=== PATIENT | male | born 1940 | race Caucasian/White ===

== ENCOUNTER 2023-04-23 16:35 | Inpatient (IN) | payer MEDICARE, OTHER ==
[~2023-04-23] VITALS: Ht 172.7 cm; Wt 114.3 kg
[~2023-04-23 16:35] MED LIST: AMLO-708 PO; APIX2.5T PO; ATOR40TA72 PO; CARV25TA3 PO; DOCU100C40 PO; ERGO500041 PO; FURO40TA4 PO; ISOS30TA84 PO; LANTUS SQ; LOSA100T58 PO; MULT-1085 PO
[2023-04-23 17:11] LABS: BASOPHILS % (AUTO) 0.2 % (0-1); EOSINOPHILS # (AUTO) 0.1 X10'3 (0-0.9); HEMATOCRIT 22.4 % (42.0-52.0); HEMOGLOBIN 7.3 g/dl (14.0-17.9); LYMPHOCYTES % (AUTO) 16.5 % (21-51); MEAN CORPUSCULAR HEMOGLOBIN 29.7 PG (27.0-31.0); MEAN CORPUSCULAR HGB CONC 32.7 g/dL (33.0-36.5); MEAN PLATELET VOLUME 9.9 FL (7.4-10.4); MONOCYTES # (AUTO) 0.7 X10'3 (0-0.9); MONOCYTES % (AUTO) 12.6 % (2-12); NEUTROPHILS % (AUTO) 69.7 % (42-75); PLATELET COUNT 115 X10'3 (140-440); RED BLOOD COUNT 2.46 X10'6 (4.70-6.10); RED CELL DISTRIBUTION WIDTH 17.2 % (11.5-14.5); WHITE BLOOD COUNT 5.8 X10'3 (4.5-11.0)
[2023-04-23 17:25] LABS: ALANINE AMINOTRANSFERASE 21 U/L (12-78); ALBUMIN 2.4 G/DL (3.4-5.0); ALBUMIN/GLOBULIN RATIO 0.8 (1.1-1.5); ALKALINE PHOSPHATASE 312 IU/L (46-116); ANION GAP 13 (8-16); ASPARTATE AMINO TRANSFERASE 17 U/L (10-37); BILIRUBIN,TOTAL 0.9 MG/DL (0.1-1.0); CHLORIDE 100 MMOL/L (99-107); CREATININE 7.73 MG/DL (0.60-1.10); GLUCOSE 173 MG/DL (70-104); LIPASE 51 U/L (16-77); SODIUM 132 MMOL/L (135-145); TOTAL CARBON DIOXIDE 19.3 MMOL/L (24-32); TOTAL PROTEIN 5.6 G/DL (6.4-8.2); eCRCL 7 ML/MIN; eGFR 7 ML/MIN
[2023-04-23 17:41] LABS: BLOOD UREA NITROGEN 183 MG/DL (7-18); BUN/CREATININE RATIO 23.7 (10.0-20.0); POTASSIUM 6.5 MMOL/L (3.5-5.1)
[2023-04-23] MEDS ORDERED: sodium bicarbonate (8.4%) 1 mEq/ml syringe IV ONE (17:50)
[2023-04-23] MEDS ORDERED: CALCIUM GLUC 1gm/50ml NACL,iso 50 ML IV PRN (17:50)
[2023-04-23 18:53] LABS: PRO BRAIN NATRIURETIC PEPTIDE > 30000 PG/ML (0-450)
[2023-04-23 19:26] LABS: MAGNESIUM 2.2 MG/DL (1.5-2.4)
[2023-04-23 19:29] LABS: APTT 34 SECONDS (22-32); INR 1.3 INR; PROTHROMBIN TIME 14.2 SECONDS (9.0-12.0)
[2023-04-23] MEDS ORDERED: insulin regular, human U-100 3ml vial - multi-dose IV ONE (19:30)
[2023-04-23] MEDS ORDERED: albuterol 2.5 MG/3 ML nebule NEB ONE (19:30)
[2023-04-23] MEDS ORDERED: Dextrose 10%-water IV solution 1,000 ML IV ONE (19:30)
[2023-04-23] MEDS ORDERED: PATIROMER CALCIUM SORBITEX 8.4 GM POWD.PACK PO ONE (19:35)
[2023-04-23] MEDS ORDERED: dextrose 50%-water 50ml dispensing syringe IV ONE (19:35)
[2023-04-23] MEDS: CALCIUM GLUC 1gm/50ml NACL,iso 50 ML IV SCH ×2 (19:57→20:37)
[2023-04-23 20:04] VITALS: PULSE 61; RESP 18; O2SAT 99
[2023-04-23 20:17] VITALS: PULSE 64; RESP 18; O2SAT 100
[2023-04-23] MEDS ORDERED: acetaminophen 325mg tablet PO PRN (20:20)
[2023-04-23] MEDS ORDERED: LidoCAINE 2% Topical Jelly 11mL syringe TOP ONE (20:20)
[2023-04-23 21:11] LABS: FREE T4 (FREE THYROXINE) 1.02 NG/DL (0.73-1.40); THYROID STIMULATING HORMONE 3.7 ulU/ml (0.34-4.50)
[2023-04-23 21:27] LABS: % IRON SATURATION 10 % (11-46); IRON 27 UG/DL (53-167); TOTAL IRON BINDING CAPACITY 265 UG/DL (259-388)
[2023-04-23 22:35] LABS: TOTAL PROTEIN,URINE RANDOM 128.9 MG/DL
[2023-04-23 22:48] LABS: UA COLLECTION TYPE FOLEY CATH
[2023-04-23 22:49] LABS: COLOR,URINE YELLOW (Yellow)
[2023-04-23 22:50] LABS: CLARITY,URINE TURBID (Clear); GLUCOSE, URINE NEGATIVE (Neg); KETONES,URINE TRACE mg/dl (Neg); NITRITES, URINE NEGATIVE (Neg); OCCULT BLOOD,URINE LARGE (Neg); PROTEIN,URINE 300 mg/dl (Neg)
[2023-04-23] MEDS: acetaminophen 325mg tablet PO PRN (22:50)
[2023-04-23 22:51] LABS: BILIRUBIN,URINE NEGATIVE (Neg); LEUKOCYTE ESTERASE ,URINE LARGE (Neg); UROBILINOGEN,URINE 0.2 E.U/dL (0.2-1.0)
[2023-04-23 22:56] LABS: WBC,URINE TNTC /HPF (0-4)
[2023-04-23 22:57] LABS: BACTERIA,URINE 2+ /HPF (Neg); MUCUS STRANDS FEW /LPF (Neg); SQUAMOUS EPITHELIAL CELL,UR FEW /LPF (FEW)
[2023-04-23 22:58] LABS: WBC CLUMPS,URINE MODERATE /HPF (NEGATIVE)
[2023-04-23] MEDS ORDERED: normal saline 500ml IV soln 500 ML IV ONE (23:15)
[2023-04-23] MEDS ORDERED: vancomycin/NS 1 GM ADD-VANTAGE 250 ML IV ONE (23:15)
[2023-04-23] MEDS ORDERED: glucagon, human recombinant 1mg kit SUBCUT PRN (23:30)
[2023-04-23] MEDS ORDERED: dextrose 50%-water 50ml dispensing syringe IV PRN ×2 (23:30)
[2023-04-23] MEDS ORDERED: MESSAGE TO PHARMACY PO ONE (23:30)
[2023-04-23] MEDS ORDERED: DEXTROSE 15 GM of carb/4 tabs (each vial/BOTTLE has 4 tablets) PO PRN ×2 (23:30)
[2023-04-23 23:52] LABS: UA EOSINOPHILS FEW EOS /HPF
[2023-04-23 23:59] LABS: HEMOGLOBIN A1C 6.8 % (4.5-6.2)
[2023-04-24] VITALS (29 sets, daily range): BP systolic 91–136; BP diastolic 41–72; PULSE 60–66; RESP 13–20; TEMP 96.9–97.2; O2SAT 93–97
[2023-04-24 04:50] LABS: BASOPHILS % (AUTO) 0.6 % (0-1); EOSINOPHILS # (AUTO) 0.1 X10'3 (0-0.9); EOSINOPHILS % (AUTO) 1.4 % (0-6); LYMPHOCYTES # (AUTO) 1.1 X10'3 (1.1-4.8); LYMPHOCYTES % (AUTO) 21.7 % (21-51); MEAN CORPUSCULAR HEMOGLOBIN 29.5 PG (27.0-31.0); MEAN CORPUSCULAR HGB CONC 32.7 g/dL (33.0-36.5); MEAN CORPUSCULAR VOLUME 90.2 FL (78-98); MEAN PLATELET VOLUME 10.1 FL (7.4-10.4); MONOCYTES # (AUTO) 0.5 X10'3 (0-0.9); MONOCYTES % (AUTO) 11.1 % (2-12); NEUTROPHILS # (AUTO) 3.2 X10'3 (1.8-7.7); NEUTROPHILS % (AUTO) 65.2 % (42-75); PLATELET COUNT 102 X10'3 (140-440); RED CELL DISTRIBUTION WIDTH 17.4 % (11.5-14.5); WHITE BLOOD COUNT 4.9 X10'3 (4.5-11.0)
[2023-04-24 04:53] LABS: HEMATOCRIT 21.6 % (42.0-52.0); HEMOGLOBIN 7.1 g/dl (14.0-17.9)
[2023-04-24 04:57] LABS: APTT 36 SECONDS (22-32); INR 1.4 INR; PROTHROMBIN TIME 14.5 SECONDS (9.0-12.0)
[2023-04-24 04:58] LABS: ALANINE AMINOTRANSFERASE 21 U/L (12-78); ALBUMIN 2.4 G/DL (3.4-5.0); ALBUMIN/GLOBULIN RATIO 0.8 (1.1-1.5); ALKALINE PHOSPHATASE 289 IU/L (46-116); ANION GAP 14 (8-16); ASPARTATE AMINO TRANSFERASE 17 U/L (10-37); CALCIUM 8.4 MG/DL (8.5-10.1); CHLORIDE 99 MMOL/L (99-107); CREATININE 7.69 MG/DL (0.60-1.10); GLUCOSE 81 MG/DL (70-104); PHOSPHORUS 8.9 MG/DL (2.3-4.5); POTASSIUM 5.7 MMOL/L (3.5-5.1); SODIUM 130 MMOL/L (135-145); TOTAL CARBON DIOXIDE 17.5 MMOL/L (24-32); TOTAL PROTEIN 5.4 G/DL (6.4-8.2); eCRCL 7 ML/MIN; eGFR 7 ML/MIN
[2023-04-24 05:00] LABS: BLOOD UREA NITROGEN 189 MG/DL (7-18); BUN/CREATININE RATIO 24.6 (10.0-20.0)
[2023-04-24] MEDS: PATIROMER CALCIUM SORBITEX 8.4 GM POWD.PACK PO SCH (07:17)
[2023-04-24] MEDS: heparin, porcine 5000 units/ml vial SQ SCH ×2 (07:20→19:42)
[2023-04-24] MEDS ORDERED: EPOETIN ALFA-EPBX 20,000 UNIT/ML 1 ML MDV IV ONE (08:00)
[2023-04-24] MEDS ORDERED: cefepime 1GM/NS ADD-VANTAGE 100 ML IV SCH (08:00)
[2023-04-24] MEDS ORDERED: normal saline 1000ml 250 ML IV PRN (08:00)
[2023-04-24] MEDS ORDERED: heparin 1,000unit/ml 10ml vial 10 ML IV ONE (08:00)
[2023-04-24] MEDS ORDERED: heparin 1,000 units/ml 10ml inj HE ONE ×2 (08:00)
[2023-04-24] MEDS ORDERED: mannitol 12.5gm/50mL VIAL IV PRN (08:00)
[2023-04-24] MEDS: sodium ferric gluc complex inj 125 MG in normal saline 100ml IV soln 100 ML IV SCH (09:35)
[2023-04-24] MEDS ORDERED: mannitol 12.5gm/50mL VIAL IV ONE (09:40)
[2023-04-24] MEDS ORDERED: vancomycin/NS 1 GM ADD-VANTAGE 250 ML IV PRN (09:50)
[2023-04-24 10:27] LABS: VANCOMYCIN,RANDOM 13.2 ug/mL (20.0-30.0)
[2023-04-24] MEDS ORDERED: Dextrose 10%-water 1000ml IV soln IV ONE (10:55)
[2023-04-24] MEDS ORDERED: fentaNYL/PF 50MCG/1 ML 2ML syringe ONE (11:56)
[2023-04-24] MEDS ORDERED: heparin 1,000unit/ml 10ml vial 10 ML ONE (11:56)
[2023-04-24] MEDS ORDERED: vancomycin/NS 1 GM ADD-VANTAGE 250 ML IV ONE (12:00)
[2023-04-24] MEDS ORDERED: ondansetron/PF 4mg/2ml inj ONE (12:17)
[2023-04-24] MEDS: acetaminophen 325mg tablet PO PRN (19:42)
[2023-04-24] MEDS: Melatonin 3mg tablet PO SCH (19:45)
[2023-04-25] VITALS (20 sets, daily range): BP systolic 109–152; BP diastolic 43–92; PULSE 60–67; RESP 12–22; TEMP 97.4–98.4; O2SAT 93–98
[2023-04-25] MEDS: VANCOMYCIN LEVEL IV SCH (03:00)
[2023-04-25 06:19] LABS: BASOPHILS % (AUTO) 0.4 % (0-1); EOSINOPHILS # (AUTO) 0.1 X10'3 (0-0.9); EOSINOPHILS % (AUTO) 1.4 % (0-6); HEMATOCRIT 24.3 % (42.0-52.0); HEMOGLOBIN 8.1 g/dl (14.0-17.9); LYMPHOCYTES # (AUTO) 1.2 X10'3 (1.1-4.8); LYMPHOCYTES % (AUTO) 19.9 % (21-51); MEAN CORPUSCULAR HEMOGLOBIN 29.9 PG (27.0-31.0); MEAN CORPUSCULAR HGB CONC 33.4 g/dL (33.0-36.5); MEAN CORPUSCULAR VOLUME 89.7 FL (78-98); MEAN PLATELET VOLUME 10.2 FL (7.4-10.4); MONOCYTES # (AUTO) 0.8 X10'3 (0-0.9); MONOCYTES % (AUTO) 13.9 % (2-12); NEUTROPHILS # (AUTO) 3.8 X10'3 (1.8-7.7); NEUTROPHILS % (AUTO) 64.4 % (42-75); PLATELET COUNT 106 X10'3 (140-440); RED BLOOD COUNT 2.71 X10'6 (4.70-6.10); RED CELL DISTRIBUTION WIDTH 18.2 % (11.5-14.5); WHITE BLOOD COUNT 5.9 X10'3 (4.5-11.0)
[2023-04-25 06:21] LABS: ALBUMIN 2.4 G/DL (3.4-5.0); ANION GAP 14 (8-16); BLOOD UREA NITROGEN 148 MG/DL (7-18); BUN/CREATININE RATIO 23.2 (10.0-20.0); CALCIUM 7.9 MG/DL (8.5-10.1); CHLORIDE 99 MMOL/L (99-107); CREATININE 6.39 MG/DL (0.60-1.10); GLUCOSE 75 MG/DL (70-104); MAGNESIUM 1.9 MG/DL (1.5-2.4); PHOSPHORUS 7.5 MG/DL (2.3-4.5); POTASSIUM 5.3 MMOL/L (3.5-5.1); SODIUM 133 MMOL/L (135-145); TOTAL CARBON DIOXIDE 20.3 MMOL/L (24-32); VANCOMYCIN,RANDOM 14.7 ug/mL (20.0-30.0); eCRCL 9 ML/MIN; eGFR 8 ML/MIN
[2023-04-25] MEDS ORDERED: EPOETIN ALFA-EPBX 20,000 UNIT/ML 1 ML MDV IV ONE (07:00)
[2023-04-25] MEDS ORDERED: mannitol 12.5gm/50mL VIAL IV ONE (07:00)
[2023-04-25] MEDS ORDERED: heparin 1,000unit/ml 10ml vial 10 ML IV ONE (07:00)
[2023-04-25] MEDS ORDERED: normal saline 1000ml 250 ML IV PRN (07:00)
[2023-04-25] MEDS ORDERED: heparin 1,000 units/ml 10ml inj HE ONE ×2 (07:05)
[2023-04-25] MEDS: cefepime inj. 0.25 GM in normal saline 100ml IV soln 102.5 ML IV SCH (07:34)
[2023-04-25] MEDS: PATIROMER CALCIUM SORBITEX 8.4 GM POWD.PACK PO SCH (07:37)
[2023-04-25] MEDS ORDERED: famotidine 20mg tablet PO SCH (08:00)
[2023-04-25] MEDS: sodium ferric gluc complex inj 125 MG in normal saline 100ml IV soln 100 ML IV SCH (08:34)
[2023-04-25] MEDS: heparin, porcine 5000 units/ml vial SQ SCH ×2 (08:37→20:30)
[2023-04-25] MEDS ORDERED: vancomycin/NS 1 GM ADD-VANTAGE 250 ML IV ONE (09:00)
[2023-04-25 11:16] LABS: HBSAG SCREEN Negative (Negative)
[2023-04-25] MEDS ORDERED: bisacodyl 10mg suppository rectal RC PRN (15:20)
[2023-04-25] MEDS ORDERED: bisacodyl 5mg tablet.DR PO PRN (15:20)
[2023-04-25] MEDS: ondansetron/PF 4mg/2ml inj IV PRN (17:51)
[2023-04-25] MEDS: Melatonin 3mg tablet PO SCH (20:29)
[2023-04-25] MEDS: acetaminophen 325mg tablet PO PRN (20:41)
[2023-04-26] VITALS (15 sets, daily range): BP systolic 100–141; BP diastolic 28–95; PULSE 58–80; RESP 14–22; TEMP 98–98.4; O2SAT 91–96
[2023-04-26 07:01] LABS: BASOPHILS % (AUTO) 0.4 % (0-1); EOSINOPHILS % (AUTO) 0.5 % (0-6); HEMATOCRIT 24.9 % (42.0-52.0); HEMOGLOBIN 8.2 g/dl (14.0-17.9); LYMPHOCYTES # (AUTO) 1.3 X10'3 (1.1-4.8); LYMPHOCYTES % (AUTO) 22.3 % (21-51); MEAN CORPUSCULAR HEMOGLOBIN 29.8 PG (27.0-31.0); MEAN CORPUSCULAR HGB CONC 32.9 g/dL (33.0-36.5); MEAN CORPUSCULAR VOLUME 90.6 FL (78-98); MEAN PLATELET VOLUME 9.8 FL (7.4-10.4); MONOCYTES # (AUTO) 0.9 X10'3 (0-0.9); MONOCYTES % (AUTO) 16.4 % (2-12); NEUTROPHILS # (AUTO) 3.4 X10'3 (1.8-7.7); NEUTROPHILS % (AUTO) 60.4 % (42-75); PLATELET COUNT 116 X10'3 (140-440); RED BLOOD COUNT 2.75 X10'6 (4.70-6.10); RED CELL DISTRIBUTION WIDTH 17.9 % (11.5-14.5); WHITE BLOOD COUNT 5.7 X10'3 (4.5-11.0)
[2023-04-26 07:06] LABS: ALBUMIN 2.4 G/DL (3.4-5.0); ANION GAP 16 (8-16); BLOOD UREA NITROGEN 101 MG/DL (7-18); BUN/CREATININE RATIO 18.2 (10.0-20.0); CALCIUM 8.7 MG/DL (8.5-10.1); CHLORIDE 100 MMOL/L (99-107); CREATININE 5.54 MG/DL (0.60-1.10); GLUCOSE 107 MG/DL (70-104); PHOSPHORUS 6.9 MG/DL (2.3-4.5); POTASSIUM 5.1 MMOL/L (3.5-5.1); SODIUM 135 MMOL/L (135-145); VANCOMYCIN,RANDOM 18.6 ug/mL (20.0-30.0); eCRCL 10 ML/MIN; eGFR 10 ML/MIN
[2023-04-26] MEDS: VANCOMYCIN LEVEL IV SCH (07:10)
[2023-04-26] MEDS ORDERED: heparin 1,000 units/ml 10ml inj HE ONE ×2 (07:15)
[2023-04-26] MEDS: heparin, porcine 5000 units/ml vial SQ SCH ×2 (07:52→20:20)
[2023-04-26] MEDS: nystatin 15 GM powder TP SCH ×2 (07:52→20:21)
[2023-04-26] MEDS ORDERED: albumin (human) 25% 100ml IV 100 ML IV PRN (08:00)
[2023-04-26] MEDS ORDERED: EPOETIN ALFA-EPBX 20,000 UNIT/ML 1 ML MDV IV ONE (08:00)
[2023-04-26] MEDS: sodium ferric gluc complex inj 125 MG in normal saline 100ml IV soln 100 ML IV SCH (08:46)
[2023-04-26] MEDS: ondansetron/PF 4mg/2ml inj IV PRN ×2 (11:11→20:45)
[2023-04-26] MEDS: cefepime inj. 0.25 GM in normal saline 100ml IV soln 102.5 ML IV SCH (11:27)
[2023-04-26] MEDS: PATIROMER CALCIUM SORBITEX 8.4 GM POWD.PACK PO SCH (11:28)
[2023-04-26] MEDS: acetaminophen 325mg tablet PO PRN ×2 (11:32→20:20)
[2023-04-26] MEDS: Melatonin 3mg tablet PO SCH (20:19)
[2023-04-27] VITALS (7 sets, daily range): BP systolic 102–131; BP diastolic 41–60; PULSE 58–72; RESP 16–21; TEMP 97.3–98.3; O2SAT 92–96
[2023-04-27] MEDS ORDERED: ondansetron/PF 4mg/2ml inj IV ONE (01:05)
[2023-04-27] MEDS: VANCOMYCIN LEVEL IV SCH (02:33)
[2023-04-27] MEDS: ondansetron/PF 4mg/2ml inj IV PRN (05:18)
[2023-04-27 06:28] LABS: BASOPHILS % (AUTO) 0.6 % (0-1); EOSINOPHILS % (AUTO) 0.5 % (0-6); HEMATOCRIT 25.9 % (42.0-52.0); HEMOGLOBIN 8.4 g/dl (14.0-17.9); LYMPHOCYTES # (AUTO) 1.4 X10'3 (1.1-4.8); LYMPHOCYTES % (AUTO) 20.7 % (21-51); MEAN CORPUSCULAR HEMOGLOBIN 29.7 PG (27.0-31.0); MEAN CORPUSCULAR HGB CONC 32.5 g/dL (33.0-36.5); MEAN CORPUSCULAR VOLUME 91.4 FL (78-98); MEAN PLATELET VOLUME 9.6 FL (7.4-10.4); MONOCYTES # (AUTO) 1.3 X10'3 (0-0.9); MONOCYTES % (AUTO) 19.3 % (2-12); NEUTROPHILS # (AUTO) 3.9 X10'3 (1.8-7.7); NEUTROPHILS % (AUTO) 58.9 % (42-75); PLATELET COUNT 136 X10'3 (140-440); RED BLOOD COUNT 2.83 X10'6 (4.70-6.10); RED CELL DISTRIBUTION WIDTH 18.1 % (11.5-14.5); WHITE BLOOD COUNT 6.7 X10'3 (4.5-11.0)
[2023-04-27 06:54] LABS: ALBUMIN 2.4 G/DL (3.4-5.0); ANION GAP 17 (8-16); BLOOD UREA NITROGEN 68 MG/DL (7-18); BUN/CREATININE RATIO 13.8 (10.0-20.0); CALCIUM 8.5 MG/DL (8.5-10.1); CHLORIDE 99 MMOL/L (99-107); CREATININE 4.93 MG/DL (0.60-1.10); GLUCOSE 146 MG/DL (70-104); MAGNESIUM 1.8 MG/DL (1.5-2.4); PHOSPHORUS 6.2 MG/DL (2.3-4.5); POTASSIUM 4.6 MMOL/L (3.5-5.1); SODIUM 135 MMOL/L (135-145); TOTAL CARBON DIOXIDE 19.5 MMOL/L (24-32); eCRCL 11 ML/MIN; eGFR 11 ML/MIN
[2023-04-27 07:07] LABS: ANISOCYTOSIS 2+; PLATELET ESTIMATE DECREASED; POIKILOCYTOSIS FEW; POLYCHROMASIA FEW
[2023-04-27] MEDS ORDERED: vancomycin/NS 1 GM ADD-VANTAGE 250 ML IV ONE (07:30)
[2023-04-27] MEDS: PATIROMER CALCIUM SORBITEX 8.4 GM POWD.PACK PO SCH (08:00)
[2023-04-27] MEDS ORDERED: famotidine 20mg tablet PO SCH ×2 (08:00→15:41)
[2023-04-27] MEDS: acetaminophen 325mg tablet PO PRN ×2 (10:31→20:19)
[2023-04-27] MEDS: cefepime inj. 0.25 GM in normal saline 100ml IV soln 102.5 ML IV SCH (10:31)
[2023-04-27] MEDS: heparin, porcine 5000 units/ml vial SQ SCH ×2 (10:32→20:18)
[2023-04-27] MEDS: nystatin 15 GM powder TP SCH ×2 (10:42→20:18)
[2023-04-27] MEDS: sodium ferric gluc complex inj 125 MG in normal saline 100ml IV soln 100 ML IV SCH (16:31)
[2023-04-27] MEDS: Melatonin 3mg tablet PO SCH (20:18)
[2023-04-28] VITALS (17 sets, daily range): BP systolic 116–148; BP diastolic 49–66; PULSE 60–96; RESP 15–24; TEMP 97.7–99.5; O2SAT 90–97
[2023-04-28] MEDS: VANCOMYCIN LEVEL IV SCH (03:00)
[2023-04-28] MEDS: ondansetron/PF 4mg/2ml inj IV PRN (05:31)
[2023-04-28 06:35] LABS: BASOPHILS % (AUTO) 0.6 % (0-1); EOSINOPHILS # (AUTO) 0.1 X10'3 (0-0.9); EOSINOPHILS % (AUTO) 1.4 % (0-6); HEMATOCRIT 25.9 % (42.0-52.0); HEMOGLOBIN 8.4 g/dl (14.0-17.9); LYMPHOCYTES # (AUTO) 1.1 X10'3 (1.1-4.8); LYMPHOCYTES % (AUTO) 17.2 % (21-51); MEAN CORPUSCULAR HEMOGLOBIN 29.6 PG (27.0-31.0); MEAN CORPUSCULAR HGB CONC 32.3 g/dL (33.0-36.5); MEAN CORPUSCULAR VOLUME 91.8 FL (78-98); MEAN PLATELET VOLUME 9.2 FL (7.4-10.4); MONOCYTES # (AUTO) 1.1 X10'3 (0-0.9); MONOCYTES % (AUTO) 17.8 % (2-12); PLATELET COUNT 141 X10'3 (140-440); RED BLOOD COUNT 2.82 X10'6 (4.70-6.10); RED CELL DISTRIBUTION WIDTH 18.2 % (11.5-14.5); WHITE BLOOD COUNT 6.3 X10'3 (4.5-11.0)
[2023-04-28 06:45] LABS: ALBUMIN 2.5 G/DL (3.4-5.0); ANION GAP 14 (8-16); BLOOD UREA NITROGEN 73 MG/DL (7-18); BUN/CREATININE RATIO 12.4 (10.0-20.0); CALCIUM 8.8 MG/DL (8.5-10.1); CHLORIDE 99 MMOL/L (99-107); CREATININE 5.88 MG/DL (0.60-1.10); GLUCOSE 186 MG/DL (70-104); MAGNESIUM 1.9 MG/DL (1.5-2.4); PHOSPHORUS 6.4 MG/DL (2.3-4.5); POTASSIUM 4.4 MMOL/L (3.5-5.1); SODIUM 134 MMOL/L (135-145); TOTAL CARBON DIOXIDE 20.8 MMOL/L (24-32); eCRCL 10 ML/MIN; eGFR 9 ML/MIN
[2023-04-28] MEDS ORDERED: EPOETIN ALFA-EPBX 20,000 UNIT/ML 1 ML MDV IV ONE (07:20)
[2023-04-28] MEDS ORDERED: heparin 1,000unit/ml 10ml vial 10 ML IV ONE (07:20)
[2023-04-28] MEDS ORDERED: normal saline 1000ml 250 ML IV PRN (07:20)
[2023-04-28] MEDS ORDERED: heparin 1,000 units/ml 10ml inj HE ONE ×2 (07:25)
[2023-04-28] MEDS: heparin, porcine 5000 units/ml vial SQ SCH ×2 (07:53→20:38)
[2023-04-28 07:55] LABS: ANISOCYTOSIS 2+; PLATELET ESTIMATE NORMAL; TOTAL CELLS COUNTED 100
[2023-04-28] MEDS: nystatin 15 GM powder TP SCH ×2 (07:55→20:38)
[2023-04-28 07:56] LABS: BURR CELLS FEW; ELLIPTOCYTES FEW; POLYCHROMASIA FEW
[2023-04-28] MEDS: PATIROMER CALCIUM SORBITEX 8.4 GM POWD.PACK PO SCH (08:14)
[2023-04-28] MEDS: cefepime inj. 0.25 GM in normal saline 100ml IV soln 102.5 ML IV SCH (09:04)
[2023-04-28] MEDS: sodium ferric gluc complex inj 125 MG in normal saline 100ml IV soln 100 ML IV SCH (10:04)
[2023-04-28] MEDS: NUT.TX.IMP.RENAL FXN,LAC-REDUC (Nepro) 237 ML VANILLA PO SCH (13:00)
[2023-04-28] MEDS: acetaminophen 325mg tablet PO PRN (17:33)
[2023-04-28] MEDS: insulin glargine (Lantus) pen - multi-dose SQ SCH (20:34)
[2023-04-28] MEDS: temazepam 15mg capsule PO PRN ×2 (20:37→23:28)
[2023-04-28] MEDS: Melatonin 3mg tablet PO SCH (20:38)
[2023-04-29] VITALS (7 sets, daily range): BP systolic 112–135; BP diastolic 51–94; PULSE 60–65; RESP 18–22; TEMP 97.3–99.7; O2SAT 90–96
[2023-04-29] MEDS: VANCOMYCIN LEVEL IV SCH (03:00)
[2023-04-29 06:21] LABS: BASOPHILS % (AUTO) 0.5 % (0-1); EOSINOPHILS # (AUTO) 0.1 X10'3 (0-0.9); EOSINOPHILS % (AUTO) 1.5 % (0-6); HEMATOCRIT 26.7 % (42.0-52.0); HEMOGLOBIN 8.8 g/dl (14.0-17.9); LYMPHOCYTES # (AUTO) 1.1 X10'3 (1.1-4.8); LYMPHOCYTES % (AUTO) 15.9 % (21-51); MEAN CORPUSCULAR HEMOGLOBIN 30.2 PG (27.0-31.0); MEAN CORPUSCULAR HGB CONC 33.1 g/dL (33.0-36.5); MEAN CORPUSCULAR VOLUME 91.4 FL (78-98); MONOCYTES # (AUTO) 1.2 X10'3 (0-0.9); NEUTROPHILS # (AUTO) 4.3 X10'3 (1.8-7.7); NEUTROPHILS % (AUTO) 64.1 % (42-75); PLATELET COUNT 149 X10'3 (140-440); RED BLOOD COUNT 2.92 X10'6 (4.70-6.10); WHITE BLOOD COUNT 6.7 X10'3 (4.5-11.0)
[2023-04-29 06:30] LABS: ALBUMIN 2.7 G/DL (3.4-5.0); ANION GAP 10 (8-16); BLOOD UREA NITROGEN 40 MG/DL (7-18); BUN/CREATININE RATIO 8.9 (10.0-20.0); CALCIUM 8.7 MG/DL (8.5-10.1); CHLORIDE 99 MMOL/L (99-107); CREATININE 4.49 MG/DL (0.60-1.10); GLUCOSE 164 MG/DL (70-104); MAGNESIUM 1.9 MG/DL (1.5-2.4); PHOSPHORUS 4.4 MG/DL (2.3-4.5); SODIUM 134 MMOL/L (135-145); TOTAL CARBON DIOXIDE 24.6 MMOL/L (24-32); VANCOMYCIN,RANDOM 15.9 ug/mL (20.0-30.0); eCRCL 12 ML/MIN; eGFR 13 ML/MIN
[2023-04-29 07:13] LABS: ANISOCYTOSIS 1+; PLATELET ESTIMATE NORMAL; TOTAL CELLS COUNTED 100
[2023-04-29 07:14] LABS: BURR CELLS FEW; POIKILOCYTOSIS 1+; POLYCHROMASIA FEW
[2023-04-29 07:15] LABS: ELLIPTOCYTES FEW; TARGET CELLS FEW
[2023-04-29] MEDS: cefepime inj. 0.25 GM in normal saline 100ml IV soln 102.5 ML IV SCH (07:30)
[2023-04-29] MEDS: NUT.TX.IMP.RENAL FXN,LAC-REDUC (Nepro) 237 ML VANILLA PO SCH ×3 (08:00→18:06)
[2023-04-29] MEDS: famotidine 20mg tablet PO SCH (08:10)
[2023-04-29] MEDS: nystatin 15 GM powder TP SCH ×2 (08:11→20:35)
[2023-04-29] MEDS: PATIROMER CALCIUM SORBITEX 8.4 GM POWD.PACK PO SCH (08:11)
[2023-04-29] MEDS: heparin, porcine 5000 units/ml vial SQ SCH ×2 (08:11→20:35)
[2023-04-29] MEDS: sodium ferric gluc complex inj 125 MG in normal saline 100ml IV soln 100 ML IV SCH (10:24)
[2023-04-29] MEDS: insulin glargine (Lantus) pen - multi-dose SQ SCH (20:24)
[2023-04-29] MEDS: insulin Lispro (HumaLOG) vial - multi-dose SQ SCH (20:28)
[2023-04-29] MEDS: Melatonin 3mg tablet PO SCH (20:35)
[2023-04-29] MEDS: acetaminophen 325mg tablet PO PRN (21:54)
[2023-04-30] VITALS (13 sets, daily range): BP systolic 108–137; BP diastolic 54–71; PULSE 60–66; RESP 15–24; TEMP 97.7–98.6; O2SAT 93–98
[2023-04-30 06:18] LABS: ALBUMIN 2.7 G/DL (3.4-5.0); ANION GAP 10 (8-16); BLOOD UREA NITROGEN 48 MG/DL (7-18); BUN/CREATININE RATIO 8.5 (10.0-20.0); CALCIUM 8.5 MG/DL (8.5-10.1); CHLORIDE 100 MMOL/L (99-107); CREATININE 5.65 MG/DL (0.60-1.10); GLUCOSE 174 MG/DL (70-104); MAGNESIUM 1.8 MG/DL (1.5-2.4); PHOSPHORUS 4.5 MG/DL (2.3-4.5); SODIUM 137 MMOL/L (135-145); TOTAL CARBON DIOXIDE 27.2 MMOL/L (24-32); VANCOMYCIN,RANDOM 15.6 ug/mL (20.0-30.0); eCRCL 10 ML/MIN; eGFR 10 ML/MIN
[2023-04-30 06:26] LABS: BASOPHILS % (AUTO) 0.6 % (0-1); EOSINOPHILS # (AUTO) 0.1 X10'3 (0-0.9); HEMATOCRIT 26.9 % (42.0-52.0); HEMOGLOBIN 8.8 g/dl (14.0-17.9); LYMPHOCYTES # (AUTO) 1.2 X10'3 (1.1-4.8); LYMPHOCYTES % (AUTO) 19.8 % (21-51); MEAN CORPUSCULAR HGB CONC 32.6 g/dL (33.0-36.5); MEAN CORPUSCULAR VOLUME 92.1 FL (78-98); MEAN PLATELET VOLUME 9.1 FL (7.4-10.4); MONOCYTES # (AUTO) 1.1 X10'3 (0-0.9); MONOCYTES % (AUTO) 17.9 % (2-12); NEUTROPHILS # (AUTO) 3.7 X10'3 (1.8-7.7); NEUTROPHILS % (AUTO) 59.7 % (42-75); PLATELET COUNT 151 X10'3 (140-440); RED BLOOD COUNT 2.92 X10'6 (4.70-6.10); RED CELL DISTRIBUTION WIDTH 17.5 % (11.5-14.5); WHITE BLOOD COUNT 6.3 X10'3 (4.5-11.0)
[2023-04-30] MEDS ORDERED: heparin 1,000unit/ml 10ml vial 10 ML IV ONE (06:30)
[2023-04-30] MEDS ORDERED: normal saline 1000ml 250 ML IV PRN (06:30)
[2023-04-30] MEDS ORDERED: EPOETIN ALFA-EPBX 20,000 UNIT/ML 1 ML MDV IV ONE (06:30)
[2023-04-30] MEDS ORDERED: heparin 1,000 units/ml 10ml inj HE ONE ×2 (06:35)
[2023-04-30] MEDS: PATIROMER CALCIUM SORBITEX 8.4 GM POWD.PACK PO SCH (07:49)
[2023-04-30] MEDS: heparin, porcine 5000 units/ml vial SQ SCH ×2 (07:49→20:01)
[2023-04-30] MEDS: NUT.TX.IMP.RENAL FXN,LAC-REDUC (Nepro) 237 ML VANILLA PO SCH ×3 (07:50→17:59)
[2023-04-30] MEDS: nystatin 15 GM powder TP SCH ×2 (07:50→20:01)
[2023-04-30] MEDS ORDERED: cefepime inj. 0.5 GM in normal saline 100ml IV soln 105 ML IV SCH (08:00)
[2023-04-30] MEDS: insulin Lispro (HumaLOG) vial - multi-dose SQ SCH ×2 (08:52→13:49)
[2023-04-30] MEDS: ondansetron/PF 4mg/2ml inj IV PRN (10:15)
[2023-04-30] MEDS: sodium ferric gluc complex inj 125 MG in normal saline 100ml IV soln 100 ML IV SCH (14:08)
[2023-04-30] MEDS: acetaminophen 325mg tablet PO PRN (17:32)
[2023-04-30] MEDS: temazepam 15mg capsule PO PRN (20:00)
[2023-04-30] MEDS: Melatonin 3mg tablet PO SCH (20:00)
[2023-04-30] MEDS: insulin glargine (Lantus) pen - multi-dose SQ SCH (20:19)
[2023-05-01] VITALS (8 sets, daily range): BP systolic 120–137; BP diastolic 61–85; PULSE 60–71; RESP 17–26; TEMP 97.5–98.3; O2SAT 95–97
[2023-05-01 07:07] LABS: ALBUMIN 2.6 G/DL (3.4-5.0); ANION GAP 10 (8-16); BLOOD UREA NITROGEN 31 MG/DL (7-18); BUN/CREATININE RATIO 7.2 (10.0-20.0); CALCIUM 8.6 MG/DL (8.5-10.1); CHLORIDE 100 MMOL/L (99-107); CREATININE 4.28 MG/DL (0.60-1.10); GLUCOSE 162 MG/DL (70-104); MAGNESIUM 1.9 MG/DL (1.5-2.4); PHOSPHORUS 3.3 MG/DL (2.3-4.5); POTASSIUM 3.6 MMOL/L (3.5-5.1); SODIUM 136 MMOL/L (135-145); TOTAL CARBON DIOXIDE 25.8 MMOL/L (24-32); VANCOMYCIN,RANDOM 11.9 ug/mL (20.0-30.0); eCRCL 13 ML/MIN; eGFR 13 ML/MIN
[2023-05-01 07:15] LABS: BASOPHILS % (AUTO) 0.8 % (0-1); EOSINOPHILS # (AUTO) 0.1 X10'3 (0-0.9); EOSINOPHILS % (AUTO) 2.4 % (0-6); HEMATOCRIT 27.8 % (42.0-52.0); HEMOGLOBIN 8.9 g/dl (14.0-17.9); LYMPHOCYTES # (AUTO) 1.2 X10'3 (1.1-4.8); LYMPHOCYTES % (AUTO) 19.9 % (21-51); MEAN CORPUSCULAR HEMOGLOBIN 29.7 PG (27.0-31.0); MEAN CORPUSCULAR HGB CONC 31.9 g/dL (33.0-36.5); MEAN CORPUSCULAR VOLUME 93.1 FL (78-98); MONOCYTES # (AUTO) 1.1 X10'3 (0-0.9); MONOCYTES % (AUTO) 17.9 % (2-12); NEUTROPHILS # (AUTO) 3.5 X10'3 (1.8-7.7); PLATELET COUNT 129 X10'3 (140-440); RED BLOOD COUNT 2.99 X10'6 (4.70-6.10); RED CELL DISTRIBUTION WIDTH 18.6 % (11.5-14.5); WHITE BLOOD COUNT 5.9 X10'3 (4.5-11.0)
[2023-05-01] MEDS: ondansetron/PF 4mg/2ml inj IV PRN (07:43)
[2023-05-01] MEDS: famotidine 20mg tablet PO SCH (07:46)
[2023-05-01] MEDS: nystatin 15 GM powder TP SCH ×2 (07:47→19:47)
[2023-05-01] MEDS: heparin, porcine 5000 units/ml vial SQ SCH ×2 (07:47→19:47)
[2023-05-01] MEDS: cefepime inj. 0.25 GM in normal saline 100ml IV soln 102.5 ML IV SCH (07:53)
[2023-05-01] MEDS: NUT.TX.IMP.RENAL FXN,LAC-REDUC (Nepro) 237 ML VANILLA PO SCH ×3 (08:00→17:48)
[2023-05-01] MEDS: sodium ferric gluc complex inj 125 MG in normal saline 100ml IV soln 100 ML IV SCH (08:57)
[2023-05-01] MEDS ORDERED: LORazepam 0.5 MG tablet PO PRN (18:10)
[2023-05-01] MEDS: sacubitril/valsartan 24mg-26mg tablet PO SCH (19:47)
[2023-05-01] MEDS: Melatonin 3mg tablet PO SCH (21:01)
[2023-05-01] MEDS: insulin glargine (Lantus) pen - multi-dose SQ SCH (21:41)
[2023-05-02] VITALS (13 sets, daily range): BP systolic 92–144; BP diastolic 51–71; PULSE 52–64; RESP 16–23; TEMP 97.6–98; O2SAT 93–98
[2023-05-02 07:20] LABS: ALBUMIN 2.4 G/DL (3.4-5.0); ANION GAP 11 (8-16); BLOOD UREA NITROGEN 40 MG/DL (7-18); BUN/CREATININE RATIO 7.8 (10.0-20.0); CALCIUM 8.5 MG/DL (8.5-10.1); CHLORIDE 101 MMOL/L (99-107); GLUCOSE 148 MG/DL (70-104); MAGNESIUM 1.9 MG/DL (1.5-2.4); PHOSPHORUS 3.9 MG/DL (2.3-4.5); POTASSIUM 3.8 MMOL/L (3.5-5.1); SODIUM 136 MMOL/L (135-145); TOTAL CARBON DIOXIDE 24.5 MMOL/L (24-32); VANCOMYCIN,RANDOM 10.9 ug/mL (20.0-30.0); eCRCL 11 ML/MIN; eGFR 11 ML/MIN
[2023-05-02] MEDS ORDERED: heparin 1,000unit/ml 10ml vial 10 ML IV ONE (07:20)
[2023-05-02] MEDS ORDERED: EPOETIN ALFA-EPBX 20,000 UNIT/ML 1 ML MDV IV ONE (07:20)
[2023-05-02] MEDS ORDERED: normal saline 1000ml 250 ML IV PRN (07:20)
[2023-05-02] MEDS ORDERED: heparin 1,000 units/ml 10ml inj HE ONE ×2 (07:25)
[2023-05-02] MEDS ORDERED: metoprolol succinate 25mg (24-HOUR) SR. Tablet PO SCH (08:00)
[2023-05-02] MEDS: sacubitril/valsartan 24mg-26mg tablet PO SCH (08:40)
[2023-05-02] MEDS: NUT.TX.IMP.RENAL FXN,LAC-REDUC (Nepro) 237 ML VANILLA PO SCH (08:46)
[2023-05-02] MEDS: sodium ferric gluc complex inj 125 MG in normal saline 100ml IV soln 100 ML IV SCH (09:09)
[2023-05-02] MEDS: cefepime inj. 0.25 GM in normal saline 100ml IV soln 102.5 ML IV SCH (10:07)
[2023-05-02] MEDS: heparin, porcine 5000 units/ml vial SQ SCH (10:11)
[2023-05-02] MEDS: nystatin 15 GM powder TP SCH (10:11)
[2023-05-02] MEDS ORDERED: SACU1TAB PO (14:51)
[2023-05-02] MEDS ORDERED: AMOX-117 PO (14:51)
== END 2023-05-02 19:15 | disposition home or self-care (01) | DRG 673 ==
LOC: ER 16:35 → ED HOLD 20:24 → ICU 2S 04-24 04:05 → CICU 2S 04-24 19:21 → PCU 3S 04-25 09:07
PROVIDERS: ADMIT Internal Medicine Pulmonary Disease; ATTEND Internal Medicine
PROC: 0JH63XZ Insertion of Tunneled Vascular Access Device into Chest Subcutaneous Tissue and Fascia, Percutaneous Approach (ICD-10-PCS; principal; 2023-04-24)
PROC: 02H633Z Insertion of Infusion Device into Right Atrium, Percutaneous Approach (ICD-10-PCS; 2023-04-24)
PROC: B518ZZA Fluoroscopy of Superior Vena Cava, Guidance (ICD-10-PCS; 2023-04-24)
PROC: B548ZZA Ultrasonography of Superior Vena Cava, Guidance (ICD-10-PCS; 2023-04-24)
PROC: 5A1D70Z Performance of Urinary Filtration, Intermittent, Less than 6 Hours Per Day (ICD-10-PCS; 2023-04-24)
PROC: 30233N1 Transfusion of Nonautologous Red Blood Cells into Peripheral Vein, Percutaneous Approach (ICD-10-PCS; 2023-04-24)
PROC: 5A1D70Z Performance of Urinary Filtration, Intermittent, Less than 6 Hours Per Day (ICD-10-PCS; 2023-04-25)
PROC: 5A1D70Z Performance of Urinary Filtration, Intermittent, Less than 6 Hours Per Day (ICD-10-PCS; 2023-04-26)
PROC: 5A1D70Z Performance of Urinary Filtration, Intermittent, Less than 6 Hours Per Day (ICD-10-PCS; 2023-04-28)
PROC: 5A1D70Z Performance of Urinary Filtration, Intermittent, Less than 6 Hours Per Day (ICD-10-PCS; 2023-04-30)
PROC: 5A1D70Z Performance of Urinary Filtration, Intermittent, Less than 6 Hours Per Day (ICD-10-PCS; 2023-05-02)
DX: N17.9 Acute kidney failure, unspecified (principal); I50.23 Acute on chronic systolic (congestive) heart failure; I13.2 Hypertensive heart and chronic kidney disease with heart failure and with stage 5 chronic kidney disease, or end stage renal disease; N39.0 Urinary tract infection, site not specified; E87.1 Hypo-osmolality and hyponatremia; D62 Acute posthemorrhagic anemia; N18.6 End stage renal disease; E87.5 Hyperkalemia; G47.00 Insomnia, unspecified; I25.119 Atherosclerotic heart disease of native coronary artery with unspecified angina pectoris; I95.9 Hypotension, unspecified; R31.0 Gross hematuria; E11.649 Type 2 diabetes mellitus with hypoglycemia without coma; D69.6 Thrombocytopenia, unspecified; E66.01 Morbid (severe) obesity due to excess calories; R41.0 Disorientation, unspecified; E11.22 Type 2 diabetes mellitus with diabetic chronic kidney disease; Z72.0 Tobacco use; Z99.2 Dependence on renal dialysis; Z90.49 Acquired absence of other specified parts of digestive tract; Z79.899 Other long term (current) drug therapy; Z95.0 Presence of cardiac pacemaker; Z68.38 Body mass index [BMI] 38.0-38.9, adult
CPT/HCPCS: 36415; 36430; 36558; 71045; 73620; 76770; 76937; 77001; 80048; 80053; 80061; 80202; 81001; 82570; 82948; 83036; 83540; 83550; 83690; 83735; 83880; 84100; 84156; 84300; 84439; 84443; 84484; 85007; 85008; 85025; 85027; 85610; 85730; 86885; 86900; 86901; 86920; 87077; 87081; 87088; 87186; 87207; 87340; 93005; 93306; 94640; 94760; 97116; 97161; 97530; 99285; A4314; A4615; A4620; A5200; A6212; A6213; A6250; A6258; A6449; A9270; C1750; C1769; C1894; E1594; G0257; G0378; J0610; J0692; J1644; J1815; J2150; J2405; J2916; J3010; J3370; J3490; J7030; J7040; P9016; Q4081